=== PATIENT | female | born 1990 | race Caucasian/White ===

== ENCOUNTER 2016-12-28 09:47 | Day surgery (SDC) | payer OTHER ==
[~2016-12-28] VITALS: Ht 165.1 cm; Wt 49.9 kg
[2016-12-28] VITALS (8 sets, daily range): BP systolic 105–117; BP diastolic 64–79; PULSE 81–141; RESP 12–22; Ht 165.1 cm; Wt 49.9 kg
[~2016-12-28 09:47] MED LIST: DEXAMETHASONE 4 MG/ML 1 ML INJ ONE
[2016-12-28] MEDS ORDERED: CEFAZOLIN 1 GM/50 ML (PMX) 50 ML IVPB SCH (12:00)
[2016-12-28] MEDS ORDERED: DEXAMETHASONE 10 MG/ML 1 ML INJ IV SCH (12:00)
[2016-12-28] MEDS ORDERED: COCAINE 4% 4 ML TOP ONE (12:31)
[2016-12-28] MEDS ORDERED: LIDOCAINE 1%/EPI (MDV) 20 ML INJ ONE (12:31)
[2016-12-28] MEDS ORDERED: BACITRACIN/POLYMYXIN 28.35 GM OINT TOP ONE (12:31)
[2016-12-28] MEDS ORDERED: EPINEPHrine 1 MG INJ ONE (12:32)
[2016-12-28] MEDS ORDERED: GLYCOPYRROLATE 0.4 MG INJ ONE (12:33)
[2016-12-28] MEDS ORDERED: SUCCINYLCHOLINE CHLORIDE 100 MG/5 ML SYG IV ONE (12:33)
[2016-12-28] MEDS ORDERED: ROCURONIUM 50 MG INJ ONE (12:33)
[2016-12-28] MEDS ORDERED: MEPERIDINE 100 MG INJ ONE (12:33)
[2016-12-28] MEDS ORDERED: PROPOFOL 20 ML ONE (12:33)
[2016-12-28] MEDS ORDERED: NEOSTIGMINE 3 MG/3 ML SYRINGE ONE (12:33)
[2016-12-28] MEDS ORDERED: LIDOCAINE 2% (SDV) 5 ML INJ ONE (12:33)
[2016-12-28] MEDS ORDERED: ONDANSETRON 4 MG INJ ONE (12:41)
[2016-12-28] MEDS ORDERED: METOCLOPRAMIDE 10 MG INJ ONE (12:41)
--- NOTE | 2016-12-28 12:48 | HPN ---
Date/Time of Note Date/Time of Note DATE: 12/28/16 TIME: 12:48 Interval H&P Admission Note Pt. seen H&P reviewed: No system changes ERICK HINES MD Dec 28, 2016 12:48
[2016-12-28] MEDS ORDERED: CLINDAMYCIN 900 MG/D5W (PMX) 50 ML IVPB ONE (13:31)
--- NOTE | 2016-12-28 14:55 | OPR ---
Date/Time of Note Date/Time of Note DATE: 12/28/16 TIME: 14:46 Operative Report Procedure Date: Dec 28, 2016 Preoperative Diagnosis Acquired nasal deformity, congestion, septal deviation and ITH right. Postoperative Diagnosis Same Operation Performed Open nasal approach to correct septal deviation and place right manager sterile graft. Right submucusoal resection of inferior turbinate. Surgeon: ERICK HINES MD Anesthesia: general Estimated Blood Loss: 10 - 50 ml's Complications: None Pt Condition Post Procedure: stable Disposition: PACU Indications Nasal congestion. Operative\Procedure Findings DNS left, severe. ITH right. Procedure Description Description of procedure: The patient was identified in the holding area. We had a discussion to confirm understanding of all indications risks benefits alternatives and postoperative care associated with the operation. Father was present. Again reiterated no guarantee of any specific type of form or function. The patient signed informed consent was taken to the operating room. The patient was laid supine on the operating room table and general anesthesia was achieved without difficulty. The face was prepped and draped in sterile fashion and the nose was packed with 4% cocaine pledgets. The nasal septum and skin was infiltrated with 5 cc of 1% lidocaine with epinephrine in the submucoperiosteal plane bilaterally. An inverted V incision was made and skin soft tissue flap elevated over the nasal skeleton. Next, through the approach, submucoperichondreal flaps were raised over the septum. The bony cartilaginous junction of the septum was identified and entered. A deviated segments of bone and cartilage were isolated. A double-action scissor was used to transect the bony deviated segment of the skull base after which a Miguel Angel forcep was used to resect deviated segment of bone and cartilage. Cartilage was harvested for manager sterile grafting and any other grafting deemed necessary. Care was taken to avoid excess cartilaginous resection and leave a significant L shaped strut. The flaps were returned to normal position and anterior rhinoscopy reveals midline septum. At this point the right inferior turbinate was medialized with a Upham elevator. The Coblation wand on a setting of 6 was used to enter the turbinate in the inferior medial submucosal compartment. 10 seconds of Coblation were performed at the 3rd 2nd and 1st adam after which the turbinate was crushed laterally into the lateral nasal wall with a Michelle elevator. The contralateral turbinate was left alone as the severe septal deviation had left it quite small in comparison. The harvested cartilage was shaped sharply into manager sterile grafts. These were placed between the superior septum and upper lateral cartilages. Osteotomies were made to allow correction of the bony deformity. Once this was done, the skeleton was medialized and symmetry was ensured. Nylon was used to reapproximate the flap once it was returned to position. Whip stitch septal closure was performed with 40 fast-absorbing gut whip stitch. A Merocel pack was placed on each side. The patient was awakened, extubated and taken to the PACU in stable condition. Complications: None. ERICK HINES MD Dec 28, 2016 14:55
[2016-12-28] MEDS ORDERED: HYDROCODONE/APAP (5/325) TAB PO PRN (15:00)
[2016-12-28] MEDS ORDERED: DIPHENHYDRAMINE 50 MG INJ IV PRN (15:30)
[2016-12-28] MEDS ORDERED: MEPERIDINE 25 MG INJ IV PRN (15:30)
[2016-12-28] MEDS ORDERED: FENTAnyl 50 MCG/ML VIAL IV PRN ×2 (15:30)
[2016-12-28] MEDS ORDERED: METOCLOPRAMIDE 10 MG INJ IV PRN (15:30)
[2016-12-28] MEDS ORDERED: ONDANSETRON 4 MG INJ IV PRN (15:30)
[2016-12-28] MEDS ORDERED: MIDAZOLAM 1 MG/ML 2 ML INJ IV PRN (15:30)
[2016-12-28] MEDS ORDERED: HYDROmorphONE (0.2 MG/ML) 10ML SYG IV PRN ×2 (15:30)
== END 2016-12-28 16:20 | disposition home or self-care (01) ==
LOC: SDS 09:47
PROVIDERS: ATTEND Otolaryngology
DX: J34.2 Deviated nasal septum (principal); M95.0 Acquired deformity of nose
CPT/HCPCS: 30140; 30520; J0330; J1100; J2175; J2405; J2710; J2765; Z7512; Z7610; J0171